=== PATIENT | female | born 1975 | race Caucasian/White ===

== ENCOUNTER 2018-06-27 12:08 | Emergency (ER) | payer OTHER ==
[~2018-06-27] VITALS: Ht 165.1 cm; Wt 72.6 kg
[2018-06-27] MEDS ORDERED: IBUPROFEN 600 MG TABLET ONE (12:23)
[2018-06-27] MEDS ORDERED: IBUPROFEN 600 MG TABLET PO ONE (12:30)
--- NOTE | 2018-06-27 12:57 | NUR ---
Patient discharged to home in stable conditon. Written and verbal after care instructions given. Patient verbalizes understanding of instructions.pt walks in steady gait.
== END 2018-06-27 13:03 | disposition home or self-care (01) ==
LOC: ER 12:08
DX: S30.0XXA Contusion of lower back and pelvis, initial encounter (principal); W01.0XXA Fall on same level from slipping, tripping and stumbling without subsequent striking against object, initial encounter; Y93.89 Activity, other specified; Y92.89 Other specified places as the place of occurrence of the external cause; Y99.0 Civilian activity done for income or pay
CPT/HCPCS: 72110; A4663

== ENCOUNTER 2021-04-18 10:52 | Emergency (ER) | payer OTHER ==
[~2021-04-18] VITALS: Ht 165.1 cm; Wt 65.8 kg
[2021-04-18] MEDS ORDERED: ONDANSETRON ODT 4 MG TAB.RAPDIS ONE (11:28)
[2021-04-18] MEDS ORDERED: ACETAMINOPHEN 325 MG TABLET ONE (11:28)
[2021-04-18] MEDS ORDERED: ACETAMINOPHEN 325 MG TABLET PO ONE (11:30)
[2021-04-18] MEDS ORDERED: ONDANSETRON ODT 4 MG TAB.RAPDIS SL ONE (11:30)
[2021-04-18] MEDS ORDERED: IV NORMAL SALINE 500 ML BAG IV ONE (12:00)
--- NOTE | 2021-04-18 12:04 | NUR ---
PT REFUSED CXR.
[2021-04-18 12:07] LABS: HEMATOCRIT 34.5 % (31.2-41.9); MEAN CORPUSCULAR HEMOGLOBIN 29.4 uug (24.7-32.8); MEAN CORPUSCULAR VOLUME 88.6 fL (75.5-95.3); PLATELET COUNT (AUTO) 215 K/uL (179-408)
[2021-04-18 12:13] LABS: CREATININE 0.8 mg/dL (0.6-1.3); POTASSIUM 3.6 mmol/L (3.5-5.1)
[2021-04-18 12:18] LABS: BILIRUBIN,TOTAL 0.3 mg/dL (0.2-1.0); TOTAL PROTEIN, SERUM 6.9 g/dL (6.4-8.2)
--- NOTE | 2021-04-18 12:57 | NUR ---
Patient discharged to home in stable condition. Written and verbal after care instructions given. Patient verbalizes understanding of instructions. Stressed follow up or return to ER for worsening s/s.PT SAYS FEELS BETTER, DENEIS NAUSEA OR PAIN AT THIS TIME.
[2021-04-18 12:58] VITALS: BP 110/77
== END 2021-04-18 12:59 | disposition home or self-care (01) ==
LOC: ER 10:52
DX: B34.9 Viral infection, unspecified (principal); R05.9 Cough, unspecified; Z20.822 Contact with and (suspected) exposure to COVID-19; R00.0 Tachycardia, unspecified
CPT/HCPCS: 36415; 70030-TC; 85025; 86403; 87070; 87400; A4663; J7030; Q0162

== ENCOUNTER 2023-03-04 18:42 | Emergency (ER) | payer OTHER ==
[~2023-03-04] VITALS: Ht 165.1 cm; Wt 63.5 kg
[2023-03-04] MEDS ORDERED: IBUPROFEN 800 MG TABLET PO ONE (19:15)
[2023-03-04] MEDS ORDERED: IBUPROFEN 800 MG TABLET ONE (19:44)
[2023-03-04] MEDS ORDERED: NAPR-1164 PO (19:58)
[2023-03-04 20:40] VITALS: BP 141/92; TEMP 98; O2SAT 99
== END 2023-03-04 20:25 | disposition home or self-care (01) ==
LOC: ER 18:45
DX: S83.92XA Sprain of unspecified site of left knee, initial encounter (principal); D50.9 Iron deficiency anemia, unspecified; Z79.899 Other long term (current) drug therapy; W01.0XXA Fall on same level from slipping, tripping and stumbling without subsequent striking against object, initial encounter; Y93.89 Activity, other specified; Y92.89 Other specified places as the place of occurrence of the external cause; Y99.8 Other external cause status
CPT/HCPCS: A4606; A4663

== ENCOUNTER 2023-08-10 21:03 | Emergency (ER) | payer OTHER ==
[~2023-08-10] VITALS: Ht 165.1 cm; Wt 65.8 kg
[~2023-08-10 21:03] MED LIST: NAPR-1164 PO
[2023-08-10] MEDS ORDERED: LOSA25TA27 PO (21:14)
[2023-08-10] MEDS ORDERED: IBUPROFEN 400 MG TABLET ONE (22:35)
[2023-08-10] MEDS ORDERED: IBUPROFEN 800 MG TABLET ONE (22:37)
[2023-08-10] MEDS: IBUPROFEN 800 MG TABLET PO ONE (22:39)
[2023-08-10 22:52] VITALS: O2SAT 98
== END 2023-08-10 22:56 | disposition home or self-care (01) ==
LOC: ER 21:05
DX: S09.8XXA Other specified injuries of head, initial encounter (principal); F43.20 Adjustment disorder, unspecified; I10 Essential (primary) hypertension; Z79.899 Other long term (current) drug therapy; X58.XXXA Exposure to other specified factors, initial encounter; Y93.89 Activity, other specified; Y92.89 Other specified places as the place of occurrence of the external cause; Y99.8 Other external cause status
CPT/HCPCS: 70450; 71045; 93005; A4606; A4663

== ENCOUNTER 2024-05-11 23:19 | Emergency (ER) | payer OTHER ==
[~2024-05-11] VITALS: Ht 165.1 cm; Wt 65.8 kg
[~2024-05-11 23:19] MED LIST changes: +LOSA25TA27 PO
[2024-05-11] MEDS ORDERED: PRED50TA PO (23:47)
[2024-05-11] MEDS ORDERED: AMOX-430 PO (23:47)
[2024-05-11] MEDS ORDERED: NAPR-1009 PO (23:47)
[2024-05-11] MEDS ORDERED: LYTE60SP PO (23:49)
[2024-05-11] MEDS ORDERED: predniSONE 10 MG TABLET ONE (23:50)
[2024-05-11] MEDS ORDERED: predniSONE 20 MG TABLET ONE (23:50)
[2024-05-11] MEDS ORDERED: NAPROXEN 500 MG TABLET ONE (23:51)
[2024-05-11] MEDS ORDERED: AMOXICILLIN-CLAVUL 875-125MG TABLET ONE (23:52)
[2024-05-11] MEDS: AMOXICILLIN-CLAVUL 875-125MG TABLET PO ONE (23:56)
[2024-05-11] MEDS: NAPROXEN 500 MG TABLET PO ONE (23:56)
[2024-05-11] MEDS: predniSONE 50 MG TABLET PO ONE (23:56)
[2024-05-12 00:09] VITALS: BP 116/79; TEMP 209.7; O2SAT 99
== END 2024-05-12 00:10 | disposition home or self-care (01) ==
LOC: ER 23:32
DX: J03.90 Acute tonsillitis, unspecified (principal); Z79.52 Long term (current) use of systemic steroids; Z79.899 Other long term (current) drug therapy
CPT/HCPCS: 99284; J7512 ×2; A4606; A4663